=== PATIENT | female | born 1955 | race Caucasian/White ===

== ENCOUNTER 2021-07-01 09:28 | Day surgery (SDC) | payer MEDICARE ==
[~2021-07-01] VITALS: Ht 171.4 cm; Wt 103.3 kg
[2021-07-01 10:17] VITALS: BP 167/96
== END 2021-07-01 14:40 | disposition home or self-care (01) ==
LOC: OUT 09:28 → EDSTATUS 11:00 → OUT 14:40
PROVIDERS: ATTEND Nurse Practitioner Family
DX: I69.393 Ataxia following cerebral infarction (principal); I69.398 Other sequelae of cerebral infarction; M21.372 Foot drop, left foot; G62.82 Radiation-induced polyneuropathy; E11.9 Type 2 diabetes mellitus without complications; I10 Essential (primary) hypertension; Z20.822 Contact with and (suspected) exposure to COVID-19; Z79.899 Other long term (current) drug therapy
CPT/HCPCS: 36415; 70551; 80053; 82962; 87635; 93005; J7120